=== PATIENT | male | born 1955 | race Caucasian/White ===

== ENCOUNTER → 2017-09-16 | Outpatient (CLI) | payer OTHER ==
[~2017-09-16] MED LIST: COREG PO; TRAMADOL PO; [UNRECOGNIZED DRUG - OTHER] PO
[2017-09-16 16:26] LABS: BASOPHILS # (AUTO) 0.04 x10^3/uL (0-0.1); BASOPHILS % (AUTO) 1 % (0-1); EOSINOPHILS # (AUTO) 0.19 x10^3/uL (0-0.4); EOSINOPHILS % (AUTO) 3 % (1-7); LYMPHOCYTES # (AUTO) 1.77 x10^3/uL (1-3.4); LYMPHOCYTES % (AUTO) 25 % (22-44); MD NO; MEAN CORPUSCULAR HEMOGLOBIN 29.5 pg (27.5-34.5); MEAN CORPUSCULAR HGB CONC 33.2 g/dL (33.2-36.2); MEAN CORPUSCULAR VOLUME 88.9 fL (81-97); MEAN PLATELET VOLUME 8.2 fL (7.4-10.4); MONOCYTES # (AUTO) 0.73 x10^3/uL (0.2-0.8); MONOCYTES % (AUTO) 10 % (2-9); NEUTROPHILS # (AUTO) 4.42 x10^3/uL (1.8-6.8); NEUTROPHILS % (AUTO) 62 % (42-75); PLATELET COUNT 214 x10^3/uL (130-400); RED BLOOD COUNT 4.76 x10^6/uL (4.38-5.82); RED CELL DISTRIBUTION WIDTH 13.9 % (9.4-14.8)
[2017-09-16 16:30] LABS: INTERNATIONAL NORMALIZED RATIO 0.97 (0.93-1.1)
[2017-09-16 16:32] LABS: MICROSCOPIC NOT IND
[2017-09-16 16:34] LABS: ANION GAP 8 mmol/L (5-15); CALCIUM 9.1 mg/dL (8.5-10.1); CHLORIDE 108 mmol/L (98-107); CULTURE INDICATED? NO
== END | disposition home or self-care (01) ==
LOC: STAR 15:22
PROVIDERS: ATTEND Neurological Surgery
DX: Z01.818 Encounter for other preprocedural examination (principal)
CPT/HCPCS: 36415; 71046; 80048; 81003; 85025; 85610; 85730; 93005

== ENCOUNTER 2017-09-24 05:47 | Day surgery (SDC) | payer OTHER ==
[~2017-09-24] VITALS: Ht 170.2 cm; Wt 82.6 kg
[2017-09-24 06:20] VITALS: BP 134/99
[2017-09-24] MEDS ORDERED: TRAM50TA2 PO (06:28)
[2017-09-24] MEDS ORDERED: LACTATED RINGERS 1,000 ML IV SCH (06:28)
[2017-09-24] MEDS ORDERED: CYCL-259 PO (06:28)
[2017-09-24] MEDS ORDERED: CARV10CP PO (06:28)
[2017-09-24] MEDS ORDERED: ACET-1600 PO (06:28)
[2017-09-24] MEDS ORDERED: FENTANYL PF 250 MCG/5ML ONE (06:52)
[2017-09-24] MEDS ORDERED: MIDAZOLAM 1 MG/ML, 2ML ONE (06:52)
[2017-09-24] MEDS ORDERED: ROCURONIUM 10MG/ML,5ML ONE (06:53)
[2017-09-24] MEDS ORDERED: GLYCOPYRROLATE 0.4 MG/2 ML, 2ML ONE (06:55)
[2017-09-24] MEDS ORDERED: NEOSTIGMINE 1 MG/ML, 10ML ONE (06:55)
[2017-09-24] MEDS ORDERED: PROPOFOL 10 MG/ML, 20ML ONE (06:55)
[2017-09-24] MEDS ORDERED: CEFAZOLIN 1,000 MG ONE ×3 (06:56)
[2017-09-24] MEDS ORDERED: WATER-INJECTION,STERILE 10 ML IV ONE (06:56)
[2017-09-24] MEDS ORDERED: BUPIVACAINE/PF-EPI 0.5% 1:200K ONE ×2 (06:58→07:11)
[2017-09-24] MEDS ORDERED: THROMBIN 5,000 UNIT VIAL TP ONE (06:58)
[2017-09-24] MEDS ORDERED: VANCOMYCIN 1,000 MG ONE (06:58)
[2017-09-24] MEDS ORDERED: BACITRACIN 50,000 UNIT ONE (06:59)
[2017-09-24] MEDS ORDERED: DIAZEPAM 5 MG/ML, 2ML IVPush PRN (07:30)
[2017-09-24] MEDS ORDERED: LABETALOL 5MG/ML, 20ML IV PRN (07:30)
[2017-09-24] MEDS ORDERED: PROMETHAZINE 12.5 MG SUPP PR PRN (07:30)
[2017-09-24] MEDS ORDERED: HYDROmorphone 1 MG/ML, 1ML IV PRN (07:30)
[2017-09-24] MEDS ORDERED: ONDANSETRON 2MG/ML, 2ML IVPush PRN (07:30)
[2017-09-24] MEDS ORDERED: morphine SULFATE 10 MG/ML, 1ML IV PRN (07:30)
[2017-09-24] MEDS ORDERED: hydrALAzine 20 MG/ML, 1ML IV PRN (07:30)
[2017-09-24] MEDS ORDERED: ACETAMINOPHEN 325 MG TABLET PO PRN (07:30)
[2017-09-24] MEDS ORDERED: PROMETHAZINE 25 MG/ML, 1ML IV PRN (07:30)
[2017-09-24] MEDS ORDERED: MEPERIDINE/PF 25MG/0.5ML IVPush PRN (07:30)
[2017-09-24] MEDS ORDERED: OXYcodone 5 MG/5 ML ORAL.SOL UDC PO PRN (07:30)
[2017-09-24] MEDS ORDERED: PHENYLEPHRINE 10 MG/ML ONE (08:23)
[2017-09-24] MEDS ORDERED: OXYcodone 5 MG/5 ML ORAL.SOL UDC ONE (09:13)
[2017-09-24] MEDS ORDERED: ACETAMINOPHEN 650 MG/20.3 ML UDC ONE (09:13)
[2017-09-24] MEDS ORDERED: FENTANYL PF 100 MCG/2ML ONE (09:34)
[2017-09-24] MEDS: FENTANYL PF 100 MCG/2ML IV PRN ×3 (09:36→09:44)
== END 2017-09-24 13:05 ==
LOC: OUT 05:47
PROVIDERS: ATTEND Neurological Surgery
DX: M54.16 Radiculopathy, lumbar region (principal); M48.061 Spinal stenosis, lumbar region without neurogenic claudication; M43.16 Spondylolisthesis, lumbar region; I10 Essential (primary) hypertension; Z88.1 Allergy status to other antibiotic agents; Z88.8 Allergy status to other drugs, medicaments and biological substances
CPT/HCPCS: 22867; 72100; C1713; J0690; J2250; J2370; J2704; J2710; J3010; J3360; J7120; J3370

== ENCOUNTER 2018-11-17 12:22 | Outpatient (CLI) | payer OTHER | END 2018-11-17 23:59 | disposition home or self-care (01) | LOC: CFH 12:22 | PROVIDERS: ATTEND Orthopaedic Surgery Foot and Ankle Surgery | DX: S52.501A Unspecified fracture of the lower end of right radius, initial encounter for closed fracture (principal); X58.XXXA Exposure to other specified factors, initial encounter; Y93.89 Activity, other specified; Y92.89 Other specified places as the place of occurrence of the external cause; Y99.8 Other external cause status ==

== ENCOUNTER → 2020-01-26 | Outpatient (CLI) | payer OTHER, MEDICARE ==
[~2020-01-26] MED LIST changes: +ACET-1600 PO; +CARV10CP PO; +CYCL-259 PO; +LOVA10TA PO; +TRAM50TA2 PO
[2020-01-26 16:46] LABS: MICROSCOPIC NOT IND
[2020-01-26 16:47] LABS: BASOPHILS # (AUTO) 0.03 x10^3/uL (0-0.1); BASOPHILS % (AUTO) 1 % (0-1); EOSINOPHILS # (AUTO) 0.18 x10^3/uL (0-0.4); EOSINOPHILS % (AUTO) 4 % (1-7); INTERNATIONAL NORMALIZED RATIO 0.98 (0.93-1.1); LYMPHOCYTES # (AUTO) 1.42 x10^3/uL (1-3.4); LYMPHOCYTES % (AUTO) 33 % (22-44); MD NO; MEAN CORPUSCULAR HEMOGLOBIN 30.9 pg (27.5-34.5); MEAN CORPUSCULAR HGB CONC 32.7 g/dL (33.2-36.2); MEAN CORPUSCULAR VOLUME 94.5 fL (81-97); MEAN PLATELET VOLUME 8.5 fL (7.4-10.4); MONOCYTES # (AUTO) 0.49 x10^3/uL (0.2-0.8); MONOCYTES % (AUTO) 11 % (2-9); NEUTROPHILS # (AUTO) 2.21 x10^3/uL (1.8-6.8); NEUTROPHILS % (AUTO) 51 % (42-75); PLATELET COUNT 164 x10^3/uL (130-400); PROTHROMBIN TIME 10.1 Seconds (9.6-11.5); RED BLOOD COUNT 4.74 x10^6/uL (4.38-5.82); RED CELL DISTRIBUTION WIDTH 13.8 % (9.4-14.8)
[2020-01-26 16:50] LABS: ANION GAP 6 mmol/L (5-15); CALCIUM 9.4 mg/dL (8.5-10.1); CHLORIDE 105 mmol/L (98-107)
[2020-01-26 16:51] LABS: CREATININE 1.12 mg/dL (0.7-1.3)
== END | disposition home or self-care (01) ==
LOC: STAR 15:05
PROVIDERS: ATTEND Neurological Surgery
DX: Z01.818 Encounter for other preprocedural examination (principal); M47.12 Other spondylosis with myelopathy, cervical region
CPT/HCPCS: 36415; 71046; 80048; 81003; 85025; 85610; 85730; 93005

== ENCOUNTER → 2020-01-28 | Outpatient (CLI) | payer MEDICARE, OTHER | END | disposition home or self-care (01) | LOC: STAR 11:41 | PROVIDERS: ATTEND Anesthesiology | DX: Z01.812 Encounter for preprocedural laboratory examination (principal); Z20.828 Contact with and (suspected) exposure to other viral communicable diseases | CPT/HCPCS: 36415; 87635 ==

== ENCOUNTER 2020-02-01 07:02 | Observation (INO) | payer OTHER, MEDICARE ==
[2020-01-26 16:19] VITALS: BP 124/89
[~2020-02-01] VITALS: Ht 170.2 cm; Wt 89.6 kg
[2020-02-01] MEDS ORDERED: LACTATED RINGERS 1,000 ML IV SCH (07:14)
[2020-02-01] MEDS ORDERED: CHLORHEXIDINE 15 ML UDC MM ONE (07:30)
[2020-02-01] MEDS ORDERED: FENTANYL PF 250 MCG/5ML ONE (09:02)
[2020-02-01] MEDS ORDERED: MIDAZOLAM 1 MG/ML, 2ML ONE (09:02)
[2020-02-01] MEDS ORDERED: PROPOFOL 100 ML ONE (09:07)
[2020-02-01] MEDS ORDERED: BUPIVACAINE/PF 0.5% ONE (09:13)
[2020-02-01] MEDS ORDERED: BUPIVACAINE/EPI 0.5% 1:200K ONE (09:14)
[2020-02-01] MEDS ORDERED: BACITRACIN 50,000 UNIT ONE (09:14)
[2020-02-01] MEDS ORDERED: LABETALOL 5MG/ML, 20ML IV PRN (10:00)
[2020-02-01] MEDS ORDERED: ACETAMINOPHEN 325 MG TABLET PO PRN (10:00)
[2020-02-01] MEDS ORDERED: HYDROmorphone 1 MG/ML, 1ML INJ IVPush PRN ×2 (10:00→11:30)
[2020-02-01] MEDS ORDERED: METHOCARBAMOL 1,000 MG in DEXTROSE 5% 100 ML IV PRN (10:00)
[2020-02-01] MEDS ORDERED: hydrALAzine 20 MG/ML, 1ML IV PRN (10:00)
[2020-02-01] MEDS ORDERED: PROMETHAZINE 25 MG SUPP PR PRN (10:00)
[2020-02-01] MEDS ORDERED: LORazepam 2 MG/ML, 1ML IVPush PRN (10:00)
[2020-02-01] MEDS ORDERED: ONDANSETRON 2MG/ML, 2ML IVPush PRN ×2 (10:00→11:30)
[2020-02-01] MEDS ORDERED: PROMETHAZINE 25 MG/ML, 1ML IVPush PRN (10:00)
[2020-02-01] MEDS ORDERED: FENTANYL PF 100 MCG/2ML ONE ×2 (10:02→11:51)
[2020-02-01] MEDS ORDERED: ONDANSETRON 2MG/ML, 2ML ONE (10:47)
[2020-02-01] MEDS ORDERED: NEOSTIGMINE 1 MG/ML, 10ML ONE (10:47)
[2020-02-01] MEDS ORDERED: PROPOFOL 10 MG/ML, 20ML ONE (10:47)
[2020-02-01] MEDS ORDERED: DEXAMETHASONE 4 MG/ML, 1ML ONE (10:47)
[2020-02-01] MEDS ORDERED: SUCCINYLCHOLINE 20 MG/ML, 10ML ONE (10:47)
[2020-02-01] MEDS ORDERED: LIDOCAINE-MPF 2% ,5ML ONE ×3 (10:47)
[2020-02-01] MEDS ORDERED: ROCURONIUM 10MG/ML,5ML ONE (10:47)
[2020-02-01] MEDS ORDERED: CEFAZOLIN 1,000 MG ONE (10:47)
[2020-02-01] MEDS ORDERED: GLYCOPYRROLATE 0.2MG/1ML, 5ML ONE (10:47)
[2020-02-01] MEDS ORDERED: PHARMACY MAY ADJ FOR RENAL FX MC PRN (11:30)
[2020-02-01] MEDS ORDERED: PROMETHAZINE 25 MG/ML, 1ML IM PRN (11:30)
[2020-02-01] MEDS ORDERED: DIPHENHYDRAMINE 50 MG/ML, 1ML IVPush PRN (11:30)
[2020-02-01] MEDS ORDERED: OXYcodone/APAP 5/325MG TABLET PO PRN (11:30)
[2020-02-01] MEDS ORDERED: DIAZEPAM 5 MG TABLET PO PRN (11:30)
[2020-02-01] MEDS ORDERED: CYCLOBENZAPRINE 10 MG TABLET PO PRN (11:30)
[2020-02-01] MEDS ORDERED: MEPERIDINE/PF 100 MG/ML IM PRN (11:30)
[2020-02-01] MEDS ORDERED: MAGNESIUM HYDROXIDE 8%, 30ML UDC PO PRN (11:30)
[2020-02-01] MEDS ORDERED: BISACODYL 10 MG SUPP PR PRN (11:30)
[2020-02-01] MEDS ORDERED: OXYcodone 5 MG/5 ML ORAL.SOL UDC ONE (11:51)
[2020-02-01] MEDS: FENTANYL PF 100 MCG/2ML IV PRN ×4 (11:54→12:20)
[2020-02-01] MEDS ORDERED: METHOCARBAMOL 1,000 MG in DEXTROSE 5% 100 ML IV ONE (12:00)
[2020-02-01] MEDS: OXYcodone 5 MG/5 ML ORAL.SOL UDC PO PRN ×2 (12:07→12:31)
[2020-02-01] MEDS ORDERED: HYDROmorphone 1 MG/ML, 1ML INJ ONE (12:39)
[2020-02-01] MEDS: HYDROcodone/APAP 10/325 MG TABLET PO PRN ×2 (15:57→20:30)
[2020-02-01] MEDS: NS + 20MEQ KCL 1,000 ML IV SCH (15:58)
[2020-02-01 16:35] VITALS: BP 130/88
[2020-02-01] MEDS: CEFAZOLIN PMX 1GM/50ML 50 ML IVPB SCH (18:24)
[2020-02-01 18:55] VITALS: BP 116/75
[2020-02-01] MEDS ORDERED: LOVASTATIN 10 MG TABLET PO SCH (21:00)
[2020-02-01] MEDS ORDERED: CARVEDILOL PHOSPHATE 10 MG HOMEMEDPO SCH (21:00)
[2020-02-01] MEDS ORDERED: SODIUM CHLORIDE FLUSH 10ML SYR IVF SCH (21:00)
[2020-02-02 01:07] VITALS: BP 92/59
[2020-02-02] MEDS: NS + 20MEQ KCL 1,000 ML IV SCH (01:30)
[2020-02-02] MEDS: CEFAZOLIN PMX 1GM/50ML 50 ML IVPB SCH (01:52)
[2020-02-02 04:24] VITALS: BP 105/70
[2020-02-02] MEDS: HYDROcodone/APAP 10/325 MG TABLET PO PRN (06:51)
[2020-02-02 07:19] VITALS: BP 120/81
[2020-02-02] MEDS ORDERED: CYCL-259 PO (08:40)
[2020-02-02] MEDS ORDERED: HYDR-3245 PO (08:40)
[2020-02-02] MEDS ORDERED: SENNA/DOCUSATE TABLET PO SCH (09:00)
== END 2020-02-02 10:30 | disposition home or self-care (01) ==
LOC: ORIP 07:02 → INTOOBSV 07:02 → 4NE 13:05 → DCLOUNGE 02-02 10:16
PROVIDERS: ADMIT Neurological Surgery; ATTEND Neurological Surgery
DX: M50.121 Cervical disc disorder at C4-C5 level with radiculopathy (principal); M48.02 Spinal stenosis, cervical region; M47.12 Other spondylosis with myelopathy, cervical region; M47.26 Other spondylosis with radiculopathy, lumbar region; I10 Essential (primary) hypertension; Z98.1 Arthrodesis status; Z79.899 Other long term (current) drug therapy
CPT/HCPCS: 22859; 63081; 72040; 95938; 95941; 96361; 96365; 96366; 97161; C1713; C1889; G0378; J0330; J0690; J1100; J1170; J2250; J2405; J2704; J2710; J2800; J3010; J3480; J3490; J7120